=== PATIENT | male | born 1995 | race Caucasian/White ===

== ENCOUNTER 2017-12-05 13:18 | Emergency (ER) | payer OTHER ==
[2017-12-05 13:31] VITALS: BP 114/65
--- NOTE | 2017-12-05 13:39 | UC ---
Head Injury HPI - HPI Summary HPI Summary: 22 year old male with concern for nasal issue. c/o colliding with another team mate Saturday while playing soccer. they hit each other in the head and both had laceration States team doctor stitches his nose (11 sutures). States he is here for an xray. No headache. no pain with eye movement. no vision changes. has exercised since then and no concerns. here because the team doctor advised xray and mom wants him to get one. he feels completely fine and prefers not to be here or get any imaging but wants to "appease" those individuals particularly mom in [place] . has had some nasal congestion in the nose but otherwise feels fine. goes to [facility] and also plays on the [employer] team . no concussion he states when had collision per the team doctor or any one else [ End ] - History Of Current Complaint Chief Complaint: UCGeneralIllness Stated Complaint: NOSE INJURY Time Seen by Provider: 12/05/17 13:32 Pain Intensity: 0 - Allergies/Home Medications Allergies/Adverse Reactions: Allergies Allergy/AdvReac Type Severity Reaction Status Date / Time No Known Allergies Allergy Verified 12/05/17 13:25 Home Medications: Home Medications Anti-Inflammatory Med 1 tab PO DAILY PRN 12/05/17 [History] PMH/Surg Hx/FS Hx/Imm Hx Previously Healthy: Yes - Surgical History Surgical History: Yes Surgery Procedure, Year, and Place: tonsilectomy. arthroscopy of knee - Family History Known Family History: Positive: None - Social History Occupation: Employed Part-time - [employer], Student Alcohol Use: Occasionally Substance Use Type: None Smoking Status (MU): Never Smoked Tobacco Review of Systems Skin: Other - bruising under eyes L>R sutures on the face ENT: Other - nasal congestion Is Patient Immunocompromised?: No All Other Systems Reviewed And Are Negative: Yes Physical Exam Triage Information Reviewed: Yes Appearance: Well-Appearing, No Pain Distress, Well-Nourished Vital Signs: Initial Vital Signs Temp 98.7 F 12/05/17 13:27 Pulse 59 12/05/17 13:27 Resp 16 12/05/17 13:27 BP 114/65 12/05/17 13:27 Pulse Ox 99 12/05/17 13:27 Vital Signs Reviewed: Yes Eye Exam: Normal Eyes: Positive: Conjunctiva Clear ENT: Positive: Pharynx normal, TMs normal. Negative: Nasal drainage, TM bulging , TM dull, TM red, Hoarse voice Dental Exam: Normal Neck exam: Normal Respiratory Exam: Normal Cardiovascular Exam: Normal Musculoskeletal Exam: Normal Neurological Exam: Normal Neurological: Positive: Other: - normal exam. no pain in eyes with movement in all directions. normal sensation. no nuero deficits Psychological Exam: Normal Skin: Positive: Other - nasal bridge left side and left medial eye brow with sutures -- 11 of them -- in place and intact. well approximated. no discharge. mild tenderness to palpation. no other obvious deformity Diagnostics - Laboratory Diagnostic Studies Completed/Ordered: IMPRESSION: TRANSVERSE NONDISPLACED FRACTURE OF THE NASAL BONES BILATERALLY. Head Injury Course/Dx - Course Course Of Treatment: I advised to consider and have CT face with the trauma he had and his high exercise / activity level but he declined . He is aware of risks. He just wants the xray to appease his mom and if sx persist or worsen he states he will return for CT scan. he will referred to ENT at this time for follow up. of note he already has a ENT appt in 5 days at 2:45 pm his mom already set up and he will not play soccer until cleared he is aware of risks. no soccer until cleared by ENT - Differential Dx/Diagnosis Differential Diagnosis/HQI/PQRI: Concussion Without LOC, Contusion, Hematoma, Laceration, Nasal Fracture, Orbital Fracture Provider Diagnoses: nasal / facial fracture. nasal / facial laceration Discharge - Sign-Out/Discharge Documenting (check all that apply): Discharge/Admit/Transfer - Discharge Plan Condition: Good Disposition: HOME Patient Education Materials: Nasal Fracture (ED) Referrals: No Primary Care Phys,NOPCP [Primary Care Provider] - If Needed Av Marley MD [Medical Doctor] - 4 Days (ENT referral ) Additional Instructions: Please follow up for removal of your sutures as directed. You had an xray today and the results are below IMPRESSION: TRANSVERSE NONDISPLACED FRACTURE OF THE NASAL BONES BILATERALLY NO SOCCER / PHYSICAL ACTIVITY UNTIL CLEARED BY PHYSICIAN KEEP YOUR ALREADY SCHEDULED ENT APPT NEXT WEEK - Billing Disposition and Condition Condition: GOOD Disposition: Home
--- NOTE | 2017-12-05 14:03 | RAD ---
HISTORY: trauma - 11 suture/left nasal bridge/eyebrow COMPARISONS: None VIEWS: 3, Ibarra views of the face, bilateral coned down lateral views of the nasal bones FINDINGS: BONE DENSITY: Normal. BONES: There is a transverse nondisplaced fracture involving the nasal bones bilaterally. The orbital rims are intact. JOINTS: There is no arthropathy. ALIGNMENT: There is no dislocation. SOFT TISSUES: Unremarkable. OTHER FINDINGS: None. IMPRESSION: TRANSVERSE NONDISPLACED FRACTURE OF THE NASAL BONES BILATERALLY.
== END 2017-12-05 14:12 | disposition home or self-care (01) ==
LOC: UCCORT 13:18
DX: S02.2XXA Fracture of nasal bones, initial encounter for closed fracture (principal); S01.81XA Laceration without foreign body of other part of head, initial encounter; W51.XXXA Accidental striking against or bumped into by another person, initial encounter; Y93.66 Activity, soccer; Y92.9 Unspecified place or not applicable
CPT/HCPCS: 70160; 99211; G0463